=== PATIENT | male | born 1990 | race Caucasian/White ===

== ENCOUNTER 2024-06-02 10:46 | Emergency (ER) | payer MEDICAID ==
[~2024-06-02] VITALS: Ht 182.9 cm; Wt 109.1 kg
[2024-06-02 10:51] VITALS: BP 133/92; PULSE 81; RESP 16; TEMP 98.7; O2SAT 98
== END 2024-06-02 11:22 | disposition home or self-care (01) ==
LOC: ER 10:46
DX: Z02.89 Encounter for other administrative examinations (principal); V89.2XXA Person injured in unspecified motor-vehicle accident, traffic, initial encounter; Y93.89 Activity, other specified; Y92.89 Other specified places as the place of occurrence of the external cause; Y99.8 Other external cause status
CPT/HCPCS: 99283